=== PATIENT | male | born 1940 | race Caucasian/White ===

== ENCOUNTER 2022-03-18 17:00 | Emergency (ER) | payer BC, MEDICARE ==
[2022-03-18] MEDS ORDERED: Diphtheria,Pertussis(Acell),Tetanus Vaccine 0.5 ML Syringe IM ONE (17:02)
[2022-03-18] MEDS ORDERED: Bacitracin Oint 1 GM U/D Packet TOP ONE (17:03)
[2022-03-18] MEDS ORDERED: Lidocaine 1% 5 ML VIAL INJECT ONE (17:03)
== END 2022-03-18 18:45 | disposition home or self-care (01) ==
LOC: JP.ED 17:00
DX: S61.452A Open bite of left hand, initial encounter (principal); I10 Essential (primary) hypertension; N40.0 Benign prostatic hyperplasia without lower urinary tract symptoms; E78.5 Hyperlipidemia, unspecified; I48.91 Unspecified atrial fibrillation; Z79.01 Long term (current) use of anticoagulants; Z23 Encounter for immunization; Z79.899 Other long term (current) drug therapy; W54.0XXA Bitten by dog, initial encounter
CPT/HCPCS: 73140-26-FA; 73140-FA; 90471; 90715; 99282; 99283-25